=== PATIENT | female | born 1975 | race American Indian/Alaskan Native ===

== ENCOUNTER 2018-05-08 20:11 | Inpatient (IN) | payer OTHER ==
--- NOTE | 2018-05-08 20:47 | C.PDOC ---
History Of Present Illness 42 year old female presents to the ED requesting detox from heroin and xanax abuse. Patient reports also other drugs abuse and drinking alcohol today [employer]. Patient denies SI/HI, hallucinations, other complaints. <Ifrah Matthews - Last Filed: 05/09/18 01:02> History Per: Patient History/Exam Limitations: no limitations Onset/Duration Of Symptoms: Hrs Current Symptoms Are (Timing): Still Present Modifying Factor(s): Alcohol, Other Associated Symptoms: denies: Depression, Suicidal Thoughts, Suicidal Plan Additional History Per: Patient, EMS <Ifrah Matthews - Last Filed: 05/09/18 01:02> <Lowell Gomez - Last Filed: 05/09/18 06:24> Time Seen by Provider: 05/08/18 20:47 Chief Complaint (Nursing): Psychiatric Evaluation Past Medical History Reviewed: Historical Data, Nursing Documentation, Vital Signs Vital Signs: Last Vital Signs Temp 98.4 F 05/08/18 20:14 Pulse 85 05/08/18 20:14 Resp 16 05/08/18 20:14 BP 114/71 05/08/18 20:14 Pulse Ox 98 05/08/18 20:14 - Medical History PMH: No Chronic Diseases Surgical History: No Surg Hx Family History: States: Unknown Family Hx - Social History Hx Alcohol Use: Yes Hx Substance Use: Yes - Immunization History Hx Tetanus Toxoid Vaccination: No Hx Influenza Vaccination: No Hx Pneumococcal Vaccination: No <Ifrah Matthews - Last Filed: 05/09/18 01:02> Vital Signs: Last Vital Signs Temp 97.9 F 05/09/18 05:11 Pulse 76 05/09/18 05:11 Resp 16 05/09/18 05:11 BP 102/55 L 05/09/18 05:11 Pulse Ox 96 05/09/18 05:11 <Lowell Gomez - Last Filed: 05/09/18 06:24> Review Of Systems Constitutional: Negative for: Fever, Chills Cardiovascular: Negative for: Chest Pain Respiratory: Negative for: Shortness of Breath Gastrointestinal: Negative for: Nausea, Vomiting Skin: Negative for: Rash Psych: Negative for: Depression, Suicidal ideation <Ifrah Matthews - Last Filed: 05/09/18 01:02> Physical Exam - Physical Exam Appears: Non-toxic, No Acute Distress Skin: Normal Color, Warm, Dry Head: Atraumatic, Normacephalic Eye(s): bilateral: Normal Inspection, PERRL Neck: Normal ROM, Supple Chest: Symmetrical Cardiovascular: Rhythm Regular Respiratory: Normal Breath Sounds, No Rales, No Rhonchi, No Wheezing Gastrointestinal/Abdominal: Soft, No Tenderness, No Guarding, No Rebound Extremity: Normal ROM, No Tenderness, No Swelling Neurological/Psych: Oriented x3, Normal Speech, Normal Cognition, Other (mild heroin intoxication, arousable, appropriate response to stimuli ) Gait: Steady <Ifrah Matthews Last Filed: 05/09/18 01:02> ED Course And Treatment - Laboratory Results Result Diagrams: 05/08/18 21:17 05/08/18 21:17 O2 Sat by Pulse Oximetry: 98 (ON RA) Pulse Ox Interpretation: Normal <Ifrah Matthews Filed: 05/09/18 01:02> - Laboratory Results Result Diagrams: 05/08/18 21:17 05/08/18 21:17 <Lowell Gomez - Last Filed: 05/09/18 06:24> Progress - Re-Evaluation Re-evaluation Note: 05/08/18 22:43 PT NOTED TO BE OPIATE INTOX, BRADYNPEA. 92% RA, 99% WHEN AWAKENED. WILL PLACE IV, NARCAN 05/09/18 01:02 sleeping AROUSE TO LIGHT STIM. UDS PENDING - Data Reviewed Data Reviewed: Lab, Diagnostic imaging, Old records <Ifrah Matthews Filed: 05/09/18 01:02> Medical Decision Making Medical Decision Making: Plan: * Labs * Crisis eval * UA <Ifrah Matthews Last Filed: 05/09/18 01:02> Disposition Counseled Patient/Family Regarding: Diagnosis - Disposition Disposition Time: 01:00 <Ifrah Matthews Last Filed: 05/09/18 01:02> Discussed With : Coral Johns - Disposition Disposition Time: 06:23 <Lowell Gomez - Last Filed: 05/09/18 06:24> - Disposition Condition: STABLE Forms: [facility] (Bengali) - Clinical Impression Clinical Impression: Polysubstance abuse, Schizophrenia - Scribe Statement The provider has reviewed the documentation as recorded by the Scribe Dre Munoz All medical record entries made by the Scribe were at my direction and personally dictated by me. I have reviewed the chart and agree that the record accurately reflects my personal performance of the history, physical exam, medical decision making, and the department course for this patient. I have also personally directed, reviewed, and agree with the discharge instructions and disposition. <Ifrah Matthews - Last Filed: 05/09/18 01:02> Physician Patient Turnover Patient Signed Over To: Lowell Gomez Handoff Comments: UDS, SOBRIETY, DISPO <Ifrah Matthews - Last Filed: 05/09/18 01:02>
[2018-05-08 21:22] LABS: BASO % 0.7 % (0.0-2.0); EOS # 0.4 K/uL (0.0-0.7); EOS % 5.1 % (0.0-4.0); LYMPH # 2.7 K/uL (1.0-4.3); LYMPH % 38.7 % (20.0-40.0); MEAN CORPUSCULAR HEMOGLOBIN 29.6 pg (27.0-31.0); MEAN CORPUSCULAR HGB CONC 32.9 g/dL (33.0-37.0); MEAN PLATELET VOLUME 7.9 fL (7.2-11.7); MONO # 0.4 K/uL (0.0-0.8); MONO % 6.4 % (0.0-10.0); NEUT # 3.4 K/uL (1.8-7.0); NEUT % 49.1 % (50.0-75.0); RBC 4.06 Mil/uL (3.80-5.20); RED CELL DISTRIBUTION WIDTH 14.9 % (11.5-14.5)
[2018-05-08 21:34] LABS: ALB/GLOB RATIO 1.4 (1.0-2.1); ALBUMIN 4.1 g/dL (3.5-5.0); ALT/SGPT 34 U/L (9-52); AST/SGOT 35 U/L (14-36); BLOOD UREA NITROGEN 9 mg/dL (7-17); CALCIUM 9.2 mg/dl (8.6-10.4); GFR NON-AFRICAN AMERICAN > 60
[2018-05-08] MEDS ORDERED: Naloxone 0.4 mg/ml Inj (Adult) IV ONE (22:44)
[2018-05-08] MEDS ORDERED: Naloxone 0.4 mg/ml Inj (Adult) ONE (23:41)
[2018-05-09 01:42] LABS: SQUAMOUS EPITHIAL 2 /hpf (0-5); URINE BILIRUBIN NEGATIVE (NEGATIVE); URINE CLARITY Clear (Clear); URINE COLOR Yellow (YELLOW); URINE GLUCOSE (UA) NORMAL (Normal); URINE LEUKOCYTE ESTERASE NEG Leu/uL (Negative); URINE PROTEIN 1+ mg/dL (NEGATIVE)
[2018-05-09 01:43] LABS: URINE BLOOD NEGATIVE (NEGATIVE)
[2018-05-09 02:20] LABS: BARBITURATES, UR NEGATIVE (NEGATIVE)
[2018-05-09 02:21] LABS: BENZODIAZEPINES, UR POSITIVE (NEGATIVE); OPIATES, UR POSITIVE (NEGATIVE)
[2018-05-09 02:24] LABS: PHENCYCLIDINE, UR NEGATIVE (NEGATIVE)
[2018-05-09] MEDS ORDERED: Naloxone 0.4 mg/ml Inj (Adult) IVP ONE (06:48)
[2018-05-09] MEDS ORDERED: Naloxone 0.4 mg/ml Inj (Adult) ONE (06:50)
--- NOTE | 2018-05-09 16:48 | PCM.BM ---
<January Luther - Last Filed: 05/09/18 16:44> Treatment Plan Problems - Problems identified on initial assessmt Substance abuse Date Initiated: 05/09/18 Time Initiated: 16:40 Assessment reference: NA Status: Active Treatment assets and liabiliti Patient Assests: cooperative, ADL independent, negotiates basic needs Patient Liabilities: substance abuse - Milieu Protocol Maintain good personal hygiene: daily Encourage regular showers, daily Remind patient to perform daily oral care, daily Assist patient to perform ADL's Maintain personal safety: every shift Educate patient to report safety concerns to staff, every shift Monitor environment for contraband/sharps Medication safety: Monitor for expected outcome, potential side effects: every shift, Assess barriers to learning: every shift, Assess readiness for medication education: every shift <Ashwin Ling - Last Filed: 05/12/18 14:47> - Diagnosis (1) Sedative, hypnotic or anxiolytic use disorder, severe, dependence Status: Acute Interventions: 05/12/18 14:46 Assess 7x/week regarding severity of withdrawal Educate regarding risks, benefits, side effects and alternatives of medications Use Motivational Interviewing for abstinence Use CBT for relapse prevention Medication management for withdrawal symptoms Encourage medication assisted treatment (2) Cocaine use disorder, severe, dependence Status: Acute Interventions: 05/12/18 14:47 Assess 7x/week regarding severity of withdrawal Educate regarding risks, benefits, side effects and alternatives of medications Use Motivational Interviewing for abstinence Use CBT for relapse prevention Medication management for withdrawal symptoms Encourage medication assisted treatment (3) Opioid use disorder, severe, dependence Status: Acute Interventions: 05/12/18 14:47 Assess 7x/week regarding severity of withdrawal Educate regarding risks, benefits, side effects and alternatives of medications Use Motivational Interviewing for abstinence Use CBT for relapse prevention Medication management for withdrawal symptoms Encourage medication assisted treatment
--- NOTE | 2018-05-09 20:01 | CP.PCM.CON ---
<Edward Orourke - Last Filed: 05/09/18 20:14> History of Present Illness - History of Present Illness History of Present Illness: Critical Care Consult Note Patient is a 42 year old with past medical history of schizophrenia, bipolar disorder presenting with chief complaint of polysubstance abuse. Patient states that in the past day she has used 15 bags of heroin in addition to ten 2 mg xanax pills. She admits to shortness of breath and back pain. Patient denies he adache, dizziness, chest pain, abdominal pain, changes in bowel movements, dysuria. Patient states that she goes to [facility] for management of her schizophrenia and bipolar disorder. ICU was consulted due to concern for benzodiazepine overdose. PMH: schizophrenia, bipolar disorder PSH: ankle surgery Social: smokes 1 PPD. 10 alcoholic drinks a day. heroin and xanax use. Home meds: haldol 0.5 mg daily, gabapentin, seroquel Allergies: NKDA Review of Systems - Review of Systems All systems: reviewed and no additional remarkable complaints except (as stated in HPI) Past Patient History - Past Social History Smoking Status: Heavy Smoker > 10 Cigarettes Daily Alcohol: > 2 Drinks/Day - CARDIAC Hx Cardiac Disorders: No Hx Hypertension: No - PULMONARY Hx Tuberculosis: No - NEUROLOGICAL HX Cerebrovascular Accident: No Hx Seizures: No - HEMATOLOGICAL/ONCOLOGICAL Hx Cancer: No Hx Human Immunodeficiency Virus (HIV): No - MUSCULOSKELETAL/RHEUMATOLOGICAL Hx Falls: No - GENITOURINARY/GYNECOLOGICAL Hx Sexually Transmitted Disorders: No - PSYCHIATRIC Hx Schizophrenia: Yes Hx Substance Use: Yes - SURGICAL HISTORY Hx Surgeries: Yes Other/Comment: RIGHT ANKLE SURGERY - ANESTHESIA Hx Anesthesia: Yes Hx Anesthesia Reactions: No Meds Allergies/Adverse Reactions: Allergies Allergy/AdvReac Type Severity Reaction Status Date / Time No Known Allergies Allergy Unverified 05/08/18 20:18 - Medications Medications: Current Medications Pneumococcal Polyvalent Vaccine (Pneumovax 23 Vaccine) 0.5 ml IM .ONCE ONE Stop: 05/13/18 10:01 Physical Exam - Head Exam Head Exam: ATRAUMATIC, NORMOCEPHALIC - Eye Exam Eye Exam: EOMI, Normal appearance, PERRL - ENT Exam ENT Exam: Mucous Membranes Moist - Neck Exam Neck exam: Positive for: Normal Inspection - Respiratory Exam Respiratory Exam: Clear to Auscultation Bilateral, NORMAL BREATHING PATTERN - Cardiovascular Exam Cardiovascular Exam: REGULAR RHYTHM, +S1, +S2 - GI/Abdominal Exam GI & Abdominal Exam: Normal Bowel Sounds, Soft. absent: Tenderness - Extremities Exam Extremities exam: Positive for: normal capillary refill, normal inspection, pedal pulses present - Neurological Exam Neurological exam: Alert, Oriented x3 - Psychiatric Exam Psychiatric exam: Agitated, Anxious - Skin Skin Exam: Dry, Intact, Normal Color Results - Vital Signs Recent Vital Signs: Last Vital Signs Temp 98.4 F 05/09/18 17:31 Pulse 62 05/09/18 17:31 Resp 18 05/09/18 17:31 BP 141/81 05/09/18 17:31 Pulse Ox 99 05/09/18 17:31 - Labs Result Diagrams: 05/08/18 21:17 05/08/18 21:17 Labs: Laboratory Results - last 24 hr 05/08/18 05/08/18 05/08/18 21:17 21:17 21:17 WBC 7.0 RBC 4.06 Hgb 12.0 Hct 36.6 MCV 90.0 MCH 29.6 MCHC 32.9 L RDW 14.9 H Plt Count 263 MPV 7.9 Neut % (Auto) 49.1 L Lymph % (Auto) 38.7 [place] % (Auto) 6.4 Eos % (Auto) 5.1 H Baso % (Auto) 0.7 Neut # (Auto) 3.4 Lymph # (Auto) 2.7 [place] # (Auto) 0.4 Eos # (Auto) 0.4 Baso # (Auto) 0.0 Sodium 142 Potassium 4.1 Chloride 106 Carbon Dioxide 25 Anion Gap 14 BUN 9 Creatinine 0.8 Est GFR ( Amer) > 60 Est GFR (Non-Af Amer) > 60 POC Glucose (mg/dL) Random Glucose 98 Calcium 9.2 Phosphorus 4.7 H Magnesium 2.0 Total Bilirubin 0.3 AST 35 ALT 34 Alkaline Phosphatase 112 Total Protein 7.2 Albumin 4.1 Globulin 3.1 Albumin/Globulin Ratio 1.4 Urine Color Urine Clarity Urine pH Ur Specific [place] Urine Protein Urine Glucose (UA) Urine Ketones Urine Blood Urine Nitrate Urine Bilirubin Urine Urobilinogen Ur Leukocyte Esterase Urine WBC (Auto) Urine RBC (Auto) Ur Squamous Epith Cells Urine Opiates Screen Urine Methadone Screen Ur Barbiturates Screen Ur Phencyclidine Scrn Ur Amphetamines Screen U Benzodiazepines Scrn U Oth Cocaine Metabols U Cannabinoids Screen Alcohol, Quantitative < 10 05/09/18 05/09/18 05/09/18 01:31 01:31 06:31 WBC RBC Hgb Hct MCV MCH MCHC RDW Plt Count MPV Neut % (Auto) Lymph % (Auto) [place] % (Auto) Eos % (Auto) Baso % (Auto) Neut # (Auto) Lymph # (Auto) [place] # (Auto) Eos # (Auto) Baso # (Auto) Sodium Potassium Chloride Carbon Dioxide Anion Gap BUN Creatinine Est GFR ( Amer) Est GFR (Non-Af Amer) POC Glucose (mg/dL) 81 Random Glucose Calcium Phosphorus Magnesium Total Bilirubin AST ALT Alkaline Phosphatase Total Protein Albumin Globulin Albumin/Globulin Ratio Urine Color Yellow Urine Clarity Clear Urine pH 5.0 Ur Specific [place] 1.029 Urine Protein 1+ H Urine Glucose (UA) Normal Urine Ketones Negative Urine Blood Negative Urine Nitrate Negative Urine Bilirubin Negative Urine Urobilinogen 2.0 H Ur Leukocyte Esterase Neg Urine WBC (Auto) 1 Urine RBC (Auto) 3 Ur Squamous Epith Cells 2 Urine Opiates Screen Positive H Urine Methadone Screen Negative Ur Barbiturates Screen Negative Ur Phencyclidine Scrn Negative Ur Amphetamines Screen Negative U Benzodiazepines Scrn Positive U Oth Cocaine Metabols Positive H U Cannabinoids Screen Negative Alcohol, Quantitative Assessment & Plan - Assessment and Plan (Free Text) Assessment: Patient is a 42 year old with past medical history of schizophrenia, bipolar disorder presenting with chief complaint of heroin and xanax abuse. Plan: Neuro: - AAO x3 - UDS positive for opiates, cocaine - patient condition does not require ICU management at this time - further management per detox unit Pulm: - maintain SpO2>92% CV: - currently hemodynamically stable GI: - regular diet Renal: - no acute issues ID: - afebrile, no leukocytosis Heme/Onc - monitor H/H Endo: - maintain euglycemia Case and plan was reviewed and discussed with Dr. Dinesh Orourke PGY-1 - Date & Time Date: 05/09/18 Time: 03:30 <Mino Montiel - Last Filed: 05/11/18 12:10> Meds - Medications Medications: Current Medications Al Hydrox/Mg Hydrox/Simethicone (Maalox 30 Ml) 30 ml PO TID PRN PRN Reason: Indigestion / Heartburn Chlordiazepoxide (Librium) 25 mg PO Q4 PRN PRN Reason: Alcohol withdrawal symptoms Last Admin: 05/10/18 13:30 Dose: 25 mg Clonidine HCl (Catapres) 0.1 mg PO Q8 PRN PRN Reason: COWS Score More or Equal to 5 Hydroxyzine HCl (Atarax) 25 mg PO Q6 PRN PRN Reason: Anxiety Loperamide HCl (Imodium) 2 mg PO Q8 PRN PRN Reason: Diarrhea Ondansetron HCl (Zofran Tab) 4 mg PO Q8 PRN PRN Reason: Nausea/Vomiting Pneumococcal Polyvalent Vaccine (Pneumovax 23 Vaccine) 0.5 ml IM .ONCE ONE Stop: 05/13/18 10:01 Trazodone HCl (Desyrel) 50 mg PO HS PRN PRN Reason: Sleep Results - Vital Signs Recent Vital Signs: Last Vital Signs Temp 99.0 F 05/11/18 10:10 Pulse 80 05/11/18 10:10 Resp 18 05/11/18 10:10 BP 141/90 05/11/18 10:10 Pulse Ox 99 05/11/18 10:10 - Labs Result Diagrams: 05/08/18 21:17 05/08/18 21:17 Assessment & Plan - Assessment and Plan (Free Text) Plan: Patient seen and examined at bedside. Patient is clinically stable. Please call ICU if patient's clinical status worsens.
--- NOTE | 2018-05-10 15:44 | CARD ---
APPROVED REPORT Date of service: 05/09/2018 EKG Measurement Heart [id number] <Conclusion> Normal sinus rhythm with sinus arrhythmia Rightward axis Incomplete right bundle branch block Borderline ECG
--- NOTE | 2018-05-10 18:22 | PCM.PSYCH ---
Initial Psychiatric Evaluation - Initial Psychiatric Evaluation Type of Admission: Voluntary Legal Status: Capacity Chief Complaint (in patient's own words): I need help for my substance use. History of Present Illness and Precipitating Events: Patient is a 42 years old, single, unemployed, -[place]i female with no previous psychiatric history was admitted due to withdrawing heroin, Xanax and cocaine. Opioid: Patient started using heroin 10 years ago, increase gradually, currently she was using 10 pads daily, significant. Her last use of heroin was 1 day before. In the ER patient was given Narcan twice, 12 hours apart. Patient stayed in the ER for 12 hours for observation before transfer the patient to detox unit. Xanax: Started 10 years ago, 7, 2 mg takes daily. Last Sunday for yesterday. Also using cocaine and alcohol but was guarded. Patient also smoked cigarette. She smokes 1 pack of cigarettes daily and is requesting for nicotine patch. Patient has history of right ankle surgery 2 years ago. She was born in [place] has associate degree. She was working until 2 years ago when she quit working after injury to her ankle. Currently on disability. She lives alone. She is single and has 6 children from 3 different people. All children are grown up. Current Medications: Active Medications Generic Name Dose Route Start Last Admin Trade Name Freq PRN Reason Stop Dose Admin Chlordiazepoxide 25 mg 05/10/18 13:22 05/10/18 13:30 Librium PO 25 mg Q4 PRN Administration Alcohol withdrawal symptoms Pneumococcal Polyvalent Vaccine 0.5 ml 05/13/18 10:00 Pneumovax 23 Vaccine IM 05/13/18 10:01 .ONCE ONE Past Psychiatric History - Past Psychiatric History Previous Treatment History: None History of Abuse: None reported History of ETOH/Drug Use: See HPI History of Family Illness: None reported Pertinent Medical Hx (Current Medical&Sleep Prob, Allergies): Allergies Allergy/AdvReac Type Severity Reaction Status Date / Time No Known Allergies Allergy Unverified 05/08/18 20:18 Unobtainable 05/09/18 Review of Systems - Psychiatric Psychiatric: As Per HPI Mental Status Examination - Personal Presentation Personal Presentation: Looks stated age - Affect Affect: Other (Anxious) - Motor Activity Motor Activity: Calm - Reliability in Providing Information Reliability in Providing Information: Fair - Speech Speech: Organized - Mood Mood: Anxious - Formal Thought Process Formal Thought Process: No Impairment - Hallucinations/Delusions Hallucinations: Other (None reported) Delusions: Other - Obsessions/Compulsions Obsessions: None Compulsions: None - Cognitive Functions Orientation: Person, Place, Situation, Time Sensorium: Alert Attention/Concentration: Attentive Abstract Thinking: [place] Estimate of Intelligence: Average Judgement: Intact, as evidence by: Insight regarding need for hospitalization Memory: Recent intact, as evidence by: Ability to recall events of the day, Remote intact, as evidenced by: Ability to recall historical events - Risk Risk: Withdrawal, Diminished functioning - Strength & Assets Inventory Strength & Assets Inventory: Cooperative - Limitations Limitations: Living alone DSM 5 DX - DSM 5 DSM 5 Diagnosis: Opioid use disorder severe. Anxiolytic use disorder severe. Cocaine use disorder severe. - Recommended/Plan of Treatment Treatment Recommendations and Plan of Treatment: Patient/staff education. Supportive therapy. CBT for relapse prevention. RI for abstinence. We will start methadone taper for opioid withdrawal symptoms. We will start Librium taper for Xanax withdrawal symptoms. Other as needed medications. Patient wants to go to a long-term program for follow-up care after discharge from the hospital. Projected ELOS: 4-5 days - Smoking Cessation Smoking Cessation Initiated: Yes
[2018-05-10] MEDS ORDERED: Aluminum Hydroxide/Magnesium Hydroxide Susp (30 mL) PO PRN (19:26)
[2018-05-11 06:38] VITALS: RESP 18
[2018-05-11 10:11] VITALS: TEMP 99
[2018-05-11 12:55] VITALS: BP 138/87; PULSE 67; O2SAT 96
[2018-05-13] MEDS ORDERED: Pneumococcal 23-Valent Vaccine IM ONE (10:00)
== END 2018-05-11 13:10 | disposition left against medical advice (07) | DRG 743 ==
LOC: C.ER 20:11 → C.7D 05-09 06:25 → UNDOADMIN 05-09 06:25 → C.9E 05-09 10:49 → C.7D 05-09 10:54 → C.9E 05-09 10:54 → OBSVTOIN 05-09 16:10 → C.7D 05-09 16:30
PROC: HZ2ZZZZ Detoxification Services for Substance Abuse Treatment (ICD-10-PCS; principal; 2018-05-09)
PROC: HZ80ZZZ Medication Management for Substance Abuse Treatment, Nicotine Replacement (ICD-10-PCS; 2018-05-09)
PROC: GZ3ZZZZ Medication Management (ICD-10-PCS; 2018-05-09)
PROC: HZ46ZZZ Group Counseling for Substance Abuse Treatment, Psychoeducation (ICD-10-PCS; 2018-05-09)
PROC: HZ59ZZZ Individual Psychotherapy for Substance Abuse Treatment, Supportive (ICD-10-PCS; 2018-05-09)
DX: F11.20 Opioid dependence, uncomplicated (principal); F13.20 Sedative, hypnotic or anxiolytic dependence, uncomplicated; F20.9 Schizophrenia, unspecified; F14.20 Cocaine dependence, uncomplicated; F31.9 Bipolar disorder, unspecified; F17.210 Nicotine dependence, cigarettes, uncomplicated